=== PATIENT | male | born 1945 | race Caucasian/White ===

== ENCOUNTER → 2016-05-01 | Outpatient (CLI) | payer OTHER ==
[~2016-05-01] MED LIST: AMT/50 PO; CIPR-255 PO; DIPH-437 PO; GLUCTAB18 PO; IBUP-1427 PO; MELATAB2 PO; PRED1SUS OPL; SENNTAB23 PO; ZCR40 PO
--- NOTE | 2016-05-01 11:32 | DIAGNOSTIC IMAGING REPORT ---
KUB HISTORY: Right-sided stones. Follow-up. COMPARISON: KUB 05/27/2015. FINDINGS: The bowel gas pattern is unremarkable. There are no dilated loops of small bowel to suggest an obstruction. A stable 3 mm stone within the left kidney. Suggestion of faint punctate right renal calculus. These are not significantly changed. No ureteral calculi identified. No pneumoperitoneum or pneumatosis. IMPRESSION: Stable bilateral nephrolithiasis. No ureteral calculi. Electronically signed by: Irwin Davidson M.D. 05/01/2016 11:30 AM Dictated Date/Time: 05/01/2016 11:28 AM
== END | disposition home or self-care (01) ==
LOC: C.RAD 10:46
PROVIDERS: ATTEND Urology
DX: N20.0 Calculus of kidney (principal)

== ENCOUNTER → 2016-05-30 | Day surgery (SDC) | payer OTHER ==
[2016-05-16 11:23] VITALS: Ht 180.3 cm; Wt 113.2 kg
[~2016-05-30] VITALS: Ht 180.3 cm; Wt 113.2 kg
[~2016-05-30] MED LIST changes: +500ML BSS 0.3ML EPI 1:1000PF IRRIG ONE; +ACETAMINOPHEN 325 MG TAB PO PRN; +AMVISC PLUS 0.8ML SYRINGE INT OCU ONE; +ATROPINE SULFATE 0.1 MG/ML 5ML SYR IV PRN; +BETAXOLOL HCL 0.25% OP SUSP PER DROP CHARGE OPL SCH; +BRIMONIDINE TART 0.2% OP SOLN PER DROP CHARGE ONE; +BSS FLUSH ONE; -CIPR-255 PO; +ENDOCOAT 0.85ML SYRINGE INT OCU ONE; +EpINEphrine INJ 1MG/ML AMP 1 MG/ML AMP ONE; -IBUP-1427 PO; +LACTATED RINGER'S 1000ML 500 ML IV SCH; +LIDOCAINE 4% OP SOLN DROP CHARGE ONE; +LIDOCAINE 4% OP SOLN DROP CHARGE OPL SCH; +LIDOCAINE HCL 1% MPF 2 ML VIAL ONE; +MIDAZOLAM HCL 1 MG/ML 2ML VIAL ONE; +MIX: 4ML BSS 1ML EPI 1:1000 PF INSTIL ONE; +MOXIFLOXACIN OPH SOLN PER DROP CHARGE ONE; +NURSING VERBAL MED ORDER ONE; +OCUCOAT 1 ML SOLN IO ONE; +POVIDONE-IODINE OP SOLN 30 ML BTL ONE; +PROPARACAINE 0.5% OP SOLN PER DROP CHARGE OPL SCH; +TOBRAMYCIN/DEXAMETHASONE OPH OINT PER APPLN CHARGE ONE
--- NOTE | 2016-05-30 07:25 | History & Physical Bridge - SC ---
H&P Re-Evaluation Bridge Note: I have examined the patient, reviewed the History & Physical and in the interval since the performance of the History & Physical I have noted the following changes of clinical significance: No changes noted
[2016-05-30] MEDS: PHENYLEPHRINE HCL 2.5% OP SOLN PER DROP CHARGE OPL SCH ×2 (09:01→09:06)
[2016-05-30] MEDS: TROPICAMIDE 1% OP SOLN PER DROP CHARGE OPL SCH ×2 (09:02→09:07)
[2016-05-30] MEDS: CYCLOPENTOLATE HCL 1% OP SOLN PER DROP CHARGE OPL SCH ×2 (09:03→09:08)
[2016-05-30] MEDS: MOXIFLOXACIN OPH SOLN PER DROP CHARGE OPL SCH ×2 (09:04→09:14)
--- NOTE | 2016-05-30 10:03 | Discharge Instructions-SurgCtr ---
Discharge Instructions Visit Reason for Visit: Cataract Left Eye Discharge Discharge Diagnosis / Problem: lens implant left eye Discharge Goals Goal(s): Improve function Activity Recommendations Activity Limitations: resume your previous activity Lifting Limitations: no more than 10 pounds Exercise/Sports Limitations: gradually increase as tolerated May Resume Sexual Activity: when tolerated Shower/Bathe: tomorrow Driving or Machine Use: resume 1 day after discharge Anesthesia . Post Anesthesia Instructions: If you have had General Anesthesia or IV Sedation: * Do not drive today. * Resume driving when surgeon permits. * Do not make important decisions or sign legal documents today. * Call surgeon for: 1. Temperature elevations greater than 101 degrees F. 2. Uncontrollable pain. 3. Excessive bleeding. 4. Persistent nausea and vomiting. 5. Medication intolerance (nausea, vomiting or rash). * For nausea and vomiting use only clear liquids such as: tea, soda, bouillon until nausea subsides, then gradually increase diet as tolerated. * If you have any concerns or questions, call your surgeon's office. If physician is unavailable and it is an emergency, call 911 or go to the nearest emergency room. . Instructions / Follow-Up Instructions / Follow-Up ACTIVITY RECOMMENDATIONS: * Light activities. * Mild irritation and blurred vision are common for the first few days. * You may walk outside, read, watch television. * Redness around the white part of the eye is common. MEDICATIONS: Resume previous medications unless instructed otherwise by your surgeon. Start all eye drops at 1 pm today: * Eye drops (today and tomorrow): Prednisone - one drop in operative eye every 3 hours while awake Ofloxacin - one drop in operative eye every 3 hours while awake SPECIAL CARE INSTRUCTIONS: * Tape plastic shield over eye to sleep at night. Call your doctor at with any concerns or problems. FOLLOW UP VISIT: Follow-up with Dr Verde at [place] office as scheduled. Diet Recommendations Home Diet: no limitations Procedures Procedures Performed: cataract extraction with lens implant Pending Studies Studies pending at discharge: no Medical Emergencies . Who to Call and When: Medical Emergencies: If at any time you feel your situation is an emergency, please call 911 immediately. . Non-Emergent Contact Non-Emergency issues call your: Bill Poster Installer Call Non-Emergent contact if: your pain is not controlled [phone] . . "Provider Documentation" section prepared by Derrek Verde.
--- NOTE | 2016-05-30 10:06 | [facility] Operative Report ---
Operative Report Date of Service May 30, 2016. Operative Report 1. PREOPERATIVE DIAGNOSIS: Senile nuclear cataract, left eye. 2. POSTOPERATIVE DIAGNOSIS: Senile nuclear cataract, left eye. 3. PROCEDURE: Phacoemulsification of left cataract with posterior chamber lens implant, type Bausch [employer] Lomb, model MX60, power +17.5 diopters. ANESTHESIA: Local standby. SURGEON: Dr. Verde. COMPLICATIONS: None. OPERATING TIME: 10 minutes. 4. OPERATION AND FINDINGS: DESCRIPTION OF PROCEDURE: The left pupil was dilated. The anesthetic was administered using a topical technique. The left eye was prepped and draped. A speculum was placed. A clear corneal incision was formed. The chamber was filled with Amvisc Plus and Endocoat. Epinephrine solution was used. A paracentesis was placed. A capsulorrhexis was performed. The nucleus was hydrodissected. The lens was removed with phacoemulsification. Time was 3.13 seconds. The aspiration unit was used to remove the cortex. The capsule was filled with Amvisc Plus. The lens implant was folded and placed into the capsule. A second limbal astigmatic incision was made 180 degrees from the original incision. The incisions were hydrated. The Amvisc was aspirated. The wounds were secure. The chamber was deep. The pupil was round. TobraDex ointment and Vigamox solution were placed. The speculum was removed. The patient was returned to the Recovery Room in stable condition. I attest to the content of the Intraoperative Record and any orders documented therein. Any exceptions are noted below. The scribe's documentation has been prepared in my presence, under my direction and personally reviewed by me in its entirety. I confirm that the note above accurately reflects all work, treatment, procedures, and medical decision making performed by me. I personally scribed for Derrek Verde M.D. ([facility]) on 05/30/16 at 10:06. Electronically submitted by Kim GUAMAN).
[2016-05-30 10:08] VITALS: TEMP 36.6
[2016-05-30 10:30] VITALS: BP 141/87; PULSE 67; O2SAT 98
[2016-05-30] MEDS: PROPARACAINE 0.5% OP SOLN PER DROP CHARGE OPL SCH ×2 (10:33→10:34)
--- NOTE | 2016-05-30 10:35 | Anesthesia Progress Nt - [facility] ---
Anesthesia Post Op Note Date & Time May 30, 2016 at 10:35 Vital Signs Pain Intensity: 0 Vital Signs Past 12 Hours Date Time Temp Pulse Resp B/P Pulse Ox O2 Delivery O2 Flow Rate FiO2 05/30/16 10:08 36.6 70 16 123/77 96 Room Air 05/30/16 08:51 36.4 79 18 131/80 97 Room Air Notes Mental Status: alert / awake / arousable, participated in evaluation Pt Amnestic to Procedure: Yes Nausea / Vomiting: adequately controlled Pain: adequately controlled Airway Patency, RR, SpO2: stable & adequate BP & HR: stable & adequate Hydration State: stable & adequate Anesthetic Complications: no major complications apparent
== END | disposition home or self-care (01) ==
LOC: X.SURG 08:34
PROVIDERS: ATTEND Specialist
DX: H25.12 Age-related nuclear cataract, left eye (principal); I10 Essential (primary) hypertension; M06.9 Rheumatoid arthritis, unspecified; Z98.1 Arthrodesis status; Z87.442 Personal history of urinary calculi; Z88.2 Allergy status to sulfonamides; Z88.8 Allergy status to other drugs, medicaments and biological substances; Z86.711 Personal history of pulmonary embolism

== ENCOUNTER → 2016-06-20 | Day surgery (SDC) | payer OTHER ==
[2016-06-18 08:58] VITALS: Ht 179.1 cm; Wt 112.3 kg
[~2016-06-20] VITALS: Ht 179.1 cm; Wt 112.3 kg
[~2016-06-20] MED LIST changes: -BETAXOLOL HCL 0.25% OP SUSP PER DROP CHARGE OPL SCH; +BETAXOLOL HCL 0.25% OP SUSP PER DROP CHARGE OPR SCH; -ENDOCOAT 0.85ML SYRINGE INT OCU ONE; +EpHEDrine SULFATE INJ 50 MG/ML AMP IV PRN; -LIDOCAINE 4% OP SOLN DROP CHARGE OPL SCH; +LIDOCAINE 4% OP SOLN DROP CHARGE OPR ONE; +LIDOCAINE 4% OP SOLN DROP CHARGE OPR SCH; -PROPARACAINE 0.5% OP SOLN PER DROP CHARGE OPL SCH; +PROPARACAINE 0.5% OP SOLN PER DROP CHARGE OPR SCH
[2016-06-20] MEDS: PHENYLEPHRINE HCL 2.5% OP SOLN PER DROP CHARGE OPR SCH ×2 (07:26→07:31)
[2016-06-20] MEDS: TROPICAMIDE 1% OP SOLN PER DROP CHARGE OPR SCH ×2 (07:27→07:32)
[2016-06-20] MEDS: CYCLOPENTOLATE HCL 1% OP SOLN PER DROP CHARGE OPR SCH ×2 (07:28→07:33)
[2016-06-20] MEDS: MOXIFLOXACIN OPH SOLN PER DROP CHARGE OPR SCH ×2 (07:29→07:39)
--- NOTE | 2016-06-20 08:32 | Discharge Instructions-SurgCtr ---
Discharge Instructions Date of Service Jun 20, 2016. Visit Reason for Visit: Cataract Right Eye Discharge Discharge Diagnosis / Problem: lens implant right eye Discharge Goals Goal(s): Improve function Activity Recommendations Activity Limitations: resume your previous activity Lifting Limitations: no more than 10 pounds Exercise/Sports Limitations: gradually increase as tolerated May Resume Sexual Activity: when tolerated Shower/Bathe: tomorrow Driving or Machine Use: resume 1 day after discharge Anesthesia . Post Anesthesia Instructions: If you have had General Anesthesia or IV Sedation: * Do not drive today. * Resume driving when surgeon permits. * Do not make important decisions or sign legal documents today. * Call surgeon for: 1. Temperature elevations greater than 101 degrees F. 2. Uncontrollable pain. 3. Excessive bleeding. 4. Persistent nausea and vomiting. 5. Medication intolerance (nausea, vomiting or rash). * For nausea and vomiting use only clear liquids such as: tea, soda, bouillon until nausea subsides, then gradually increase diet as tolerated. * If you have any concerns or questions, call your surgeon's office. If physician is unavailable and it is an emergency, call 911 or go to the nearest emergency room. . Instructions / Follow-Up Instructions / Follow-Up ACTIVITY RECOMMENDATIONS: * Light activities. * Mild irritation and blurred vision are common for the first few days. * You may walk outside, read, watch television. * Redness around the white part of the eye is common. MEDICATIONS: Resume previous medications unless instructed otherwise by your surgeon. Start all eye drops at 1 pm today: * Eye drops (today and tomorrow): Prednisone - one drop in operative eye every 3 hours while awake Ofloxacin - one drop in operative eye every 3 hours while awake SPECIAL CARE INSTRUCTIONS: * Tape plastic shield over eye to sleep at night. Call your doctor at with any concerns or problems. FOLLOW UP VISIT: Follow-up with Dr Verde at [place] office as scheduled. Diet Recommendations Home Diet: no limitations Procedures Procedures Performed: cataract extraction with lens implant Pending Studies Studies pending at discharge: no Medical Emergencies . Who to Call and When: Medical Emergencies: If at any time you feel your situation is an emergency, please call 911 immediately. . Non-Emergent Contact Non-Emergency issues call your: Reading Teacher Call Non-Emergent contact if: your pain is not controlled [phone] . . "Provider Documentation" section prepared by Derrek Verde.
--- NOTE | 2016-06-20 08:34 | [facility] Operative Report ---
Operative Report Date of Service Jun 20, 2016. Operative Report 1. PREOPERATIVE DIAGNOSIS: Senile nuclear cataract, right eye. 2. POSTOPERATIVE DIAGNOSIS: Senile nuclear cataract, right eye. 3. PROCEDURE: Phacoemulsification of right cataract with posterior chamber lens implant, type Bausch [employer] Lomb, model MX60, power +16.0 diopters. ANESTHESIA: Local standby. SURGEON: Dr. Verde. COMPLICATIONS: None. OPERATING TIME: 10 minutes. 4. OPERATION AND FINDINGS: DESCRIPTION OF PROCEDURE: The right pupil was dilated. The anesthetic was administered using a topical technique. The right eye was prepped and draped. A speculum was placed. A clear corneal incision was formed. The chamber was filled with Amvisc Plus and Endocoat. Epinephrine solution was used. A paracentesis was placed. A capsulorrhexis was performed. The nucleus was hydrodissected. The lens was removed with phacoemulsification. Time was 3.40 seconds. The aspiration unit was used to remove the cortex. The capsule was filled with Amvisc Plus. The lens implant was folded and placed into the capsule. The incision was hydrated. The Amvisc was aspirated. The wound was secure. The chamber was deep. The pupil was round. Brimonidine, TobraDex ointment and Vigamox solution were placed. The speculum was removed. The patient was returned to the Recovery Room in stable condition. I attest to the content of the Intraoperative Record and any orders documented therein. Any exceptions are noted below. The scribe's documentation has been prepared in my presence, under my direction and personally reviewed by me in its entirety. I confirm that the note above accurately reflects all work, treatment, procedures, and medical decision making performed by me. I personally scribed for Derrek Verde M.D. ([facility]) on 06/20/16 at 08:34. Electronically submitted by Kim Griffith ([facility]).
[2016-06-20 08:38] VITALS: TEMP 36.6
[2016-06-20 09:02] VITALS: BP 125/81; PULSE 64; O2SAT 100
--- NOTE | 2016-06-20 09:02 | Anesthesia Progress Nt - [facility] ---
Anesthesia Post Op Note Date & Time Jun 20, 2016 at 09:02 Vital Signs Pain Intensity: 0 Vital Signs Past 12 Hours Date Time Temp Pulse Resp B/P Pulse Ox O2 Delivery O2 Flow Rate FiO2 06/20/16 08:38 36.6 72 18 117/72 97 Room Air 06/20/16 07:22 36.8 90 16 110/74 97 Room Air Notes Mental Status: alert / awake / arousable, participated in evaluation Pt Amnestic to Procedure: Yes Nausea / Vomiting: adequately controlled Pain: adequately controlled Airway Patency, RR, SpO2: stable & adequate BP & HR: stable & adequate Hydration State: stable & adequate Anesthetic Complications: no major complications apparent
== END | disposition home or self-care (01) ==
LOC: X.SURG 06:55
PROVIDERS: ATTEND Specialist
DX: H25.11 Age-related nuclear cataract, right eye (principal); I10 Essential (primary) hypertension; Z88.2 Allergy status to sulfonamides; Z88.8 Allergy status to other drugs, medicaments and biological substances

== ENCOUNTER → 2016-11-09 | Outpatient (CLI) | payer OTHER ==
[~2016-11-09] MED LIST changes: -500ML BSS 0.3ML EPI 1:1000PF IRRIG ONE; -ACETAMINOPHEN 325 MG TAB PO PRN; -AMVISC PLUS 0.8ML SYRINGE INT OCU ONE; -ATROPINE SULFATE 0.1 MG/ML 5ML SYR IV PRN; -BETAXOLOL HCL 0.25% OP SUSP PER DROP CHARGE OPR SCH; -BRIMONIDINE TART 0.2% OP SOLN PER DROP CHARGE ONE; -BSS FLUSH ONE; -EpHEDrine SULFATE INJ 50 MG/ML AMP IV PRN; -EpINEphrine INJ 1MG/ML AMP 1 MG/ML AMP ONE; -LACTATED RINGER'S 1000ML 500 ML IV SCH; -LIDOCAINE 4% OP SOLN DROP CHARGE ONE; -LIDOCAINE 4% OP SOLN DROP CHARGE OPR ONE; -LIDOCAINE 4% OP SOLN DROP CHARGE OPR SCH; -LIDOCAINE HCL 1% MPF 2 ML VIAL ONE; -MIDAZOLAM HCL 1 MG/ML 2ML VIAL ONE; -MIX: 4ML BSS 1ML EPI 1:1000 PF INSTIL ONE; -MOXIFLOXACIN OPH SOLN PER DROP CHARGE ONE; -NURSING VERBAL MED ORDER ONE; -OCUCOAT 1 ML SOLN IO ONE; -POVIDONE-IODINE OP SOLN 30 ML BTL ONE; -PROPARACAINE 0.5% OP SOLN PER DROP CHARGE OPR SCH; -TOBRAMYCIN/DEXAMETHASONE OPH OINT PER APPLN CHARGE ONE
--- NOTE | 2016-11-09 08:42 | DIAGNOSTIC IMAGING REPORT ---
KUB CLINICAL HISTORY: N20.0 Nephrolithiasis COMPARISON STUDY: 05/01/2016 FINDINGS: Degenerative changes are present within the spine. There is no pathologic bowel dilatation. There is a stable 3 mm left renal calculus. There is equivocal punctate left renal calculus. Pelvic basin calcifications are felt to be vascular. IMPRESSION: 1. No evidence of pathologic bowel dilatation 2. Stable 3 mm left renal calculus 3. Equivocal punctate right renal calculus Electronically signed by: Jaydon Sparks M.D. 11/09/2016 8:41 AM Dictated Date/Time: 11/09/2016 8:40 AM
[2016-11-09 09:43] LABS: BLOOD UREA NITROGEN 19 mg/dl (7-18); BUN/CREATININE RATIO 17.2 (10-20)
--- NOTE | 2016-11-15 13:12 | CODING QUERY MEDICAL NECESSITY ---
CQSUPPORTING DIAGNOSIS NEEDED A supporting diagnosis is required for the test/procedure performed on this patient in order for us to be reimbursed by the patient's insurance. Please provide a supporting diagnosis for the following test/procedure listed below next to the test name along with your signature. *If there is no additional diagnosis for this patient that would support the following test/procedure please document that below next to the test/procedure. Test(s)/Procedure(s) that require a supporting diagnosis: DOS 11/09/16 PROSTATE SPECIFIC ANTIGEN (PSA) Provider Signature: Date: Thank you Maribel Lundberg Health Information Management Once completed, please kindly fax back to [phone] For questions please call [phone]
== END | disposition home or self-care (01) ==
LOC: C.LAB 08:02
PROVIDERS: ATTEND Urology
DX: N20.0 Calculus of kidney (principal); N40.1 Benign prostatic hyperplasia with lower urinary tract symptoms; R97.20 Elevated prostate specific antigen [PSA]

== ENCOUNTER → 2017-07-22 | Outpatient (CLI) | payer OTHER ==
--- NOTE | 2017-07-22 12:20 | DIAGNOSTIC IMAGING REPORT ---
KUB CLINICAL HISTORY: N20.0 [id number] Benign prostatic hyperplasia with urinary retention COMPARISON STUDY: November 09, 2016 FINDINGS: There is a 2 mm calcification projected over the midpole the left kidney suspicious for a calculus. There is a punctate calcification projected over the lower pole the left kidney suspicious for a calculus. There are no calcifications suspicious for ureteral calculi. Degenerative changes are present within the spine. There is no pathologic bowel dilatation. IMPRESSION: 1. Left-sided nephrolithiasis. Electronically signed by: Jaydon Sparks M.D. 07/22/2017 12:19 PM Dictated Date/Time: 07/22/2017 12:17 PM
== END | disposition home or self-care (01) ==
LOC: C.RAD 11:40
PROVIDERS: ATTEND Urology
DX: N20.0 Calculus of kidney (principal); N40.1 Benign prostatic hyperplasia with lower urinary tract symptoms

== ENCOUNTER → 2017-11-20 | Outpatient (CLI) | payer OTHER ==
[2017-11-20 10:39] LABS: BLOOD UREA NITROGEN 20 mg/dl (7-18); CREATININE 1.04 mg/dl (0.60-1.40)
== END | disposition home or self-care (01) ==
LOC: C.LAB 09:34
PROVIDERS: ATTEND Urology
DX: N20.1 Calculus of ureter (principal)

== ENCOUNTER 2022-01-25 05:48 | Observation (INO) ==
--- NOTE | 2021-12-14 13:49 | PAT Medication Instructions ---
Medication Instructions Date of Service December 14, 2021 Home Medications acetaminophen 500 mg tablet (Tylenol Extra Strength) 1,000 mg PO ONCE PRN Pain diphenhydramine 25 mg-acetaminophen 500 mg tablet (Tylenol PM Extra Strength) 1 tab PO HS doxepin 25 mg capsule 25 - 50 mg PO HS PRN Sleep dvtoopsekyv-[id number] C-Mn 500 mg-400 mg capsule (Glucosamine Chondroitin Maximum Strength) 1 cap PO BID melatonin 5 mg capsule 5 mg PO HS simvastatin 40 mg tablet (Zocor) 40 mg PO QPM pregabalin 75 mg capsule 75 mg PO BID PRN Pain ASK your prescriber and surgeon doxepin 25 mg capsule 25 - 50 mg PO HS PRN Sleep STOP taking 2 weeks before surgery (or as soon as possible if surgery is within 2 weeks) [id number]-[id number] C-Mn 500 mg-400 mg capsule (Glucosamine Chondroitin Maximum Strength) 1 cap PO BID Take morning of surgery With a small sip of water, OTHERWISE NOTHING TO EAT OR DRINK AFTER MIDNIGHT: acetaminophen 500 mg tablet (Tylenol Extra Strength) 1,000 mg PO ONCE PRN Pain (if needed) pregabalin 75 mg capsule 75 mg PO BID PRN Pain (if needed) Take evening before surgery acetaminophen 500 mg tablet (Tylenol Extra Strength) 1,000 mg PO ONCE PRN Pain (if needed) diphenhydramine 25 mg-acetaminophen 500 mg tablet (Tylenol PM Extra Strength) 1 tab PO HS melatonin 5 mg capsule 5 mg PO HS simvastatin 40 mg tablet (Zocor) 40 mg PO QPM pregabalin 75 mg capsule 75 mg PO BID PRN Pain (if needed) Other Notes If you have any questions please call us at [phone] or [phone] or [phone] or [phone]
--- NOTE | 2021-12-22 12:41 | Anesthesiology Consultation ---
Date of Service December 22, 2021 Assessment & Plan (1) Encounter for pre-operative examination: - COVID screening: Per assessment on 12/22: No known COVID-19 positive contacts or current COVID-19 related symptoms. Travel screen negative. Patient vaccinated. At surgeon discretion if preop Covid testing being done. - Outpatient joint assessment: Pt currently scheduled for inpatient pathway. If surgeon requests review for outpatient joint pathway, patient is not recommended candidate for outpatient joint program from anesthesia standpoint. Can be further reviewed by anesthesiologist if necessary. Chart Review Chart Review: Acceptable Risk for Surgery and Patient seen in Pre Admission Testing Teaching & Discussion Pre-Anesthesia Teaching/Discussion Notes: Instructed NPO after midnight before surgery,except medications with 15 cc of water. Medication instructions provided according to the PAT guidelines. History Surgery Operation Date: 01/25/22 07:00 Proposed Procedures p Right Total Knee Arthroplasty - Tico Robertson MD Height/Weight Height: 5 ft 10.5 in Weight: 96.3 kg Allergies Allergy/AdvReac Type Severity Reaction Status Date / Time Sulfa (Sulfonamide Allergy Intermediate Unknown Verified 12/19/21 11:37 Antibiotics) zolpidem Allergy Unknown Head Verified 12/19/21 11:37 pressure Medications Home Medications Medication Instructions Recorded Confirmed Last Taken acetaminophen 500 mg tablet 1,000 mg PO ONCE PRN Pain 02/25/18 12/13/21 Unknown (Tylenol Extra Strength) diphenhydramine 25 1 tab PO HS 02/25/18 12/13/21 Unknown mg-acetaminophen 500 mg tablet (Tylenol PM Extra Strength) doxepin 25 mg capsule 25 - 50 mg PO HS PRN Sleep 02/25/18 12/13/21 Unknown iuajbuwegbo-mvthgxhiy-aik C-Mn 500 1 cap PO BID 02/25/18 12/13/21 Unknown mg-400 mg capsule (Glucosamine Chondroitin Maximum Strength) melatonin 5 mg capsule 5 mg PO HS 02/25/18 12/13/21 Unknown simvastatin 40 mg tablet (Zocor) 40 mg PO QPM 02/25/18 12/13/21 Unknown pregabalin 75 mg capsule 75 mg PO BID PRN Pain 01/22/20 12/13/21 Unknown Wheeled Walker #1 ea 12/22/21 12/22/21 Unknown Past Medical History Medical History Bilateral carpal tunnel syndrome Present Borderline diabetic Diet controlled Chronic low back pain H/O renal calculi High cholesterol 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) r/t trauma/injury, was on coumadin x 6 months History of pulmonary embolism LLE DVT > PE (2012) r/t trauma/injury, was on coumadin x 6 months Insomnia Migraines Obesity Osteoarthritis Right knee DJD Exercise / Class Metabolic Activity II 4-5 Yardwork/Stairs/Walk up hill (one FS (No CP, no SOB)) Past Family History Family History Mother Cancer Father Diabetes 1.5, managed as type 1 Stroke Past Surgical History Surgical History H/O colonoscopy H/O lithotripsy H/O nephrolithotomy with removal of calculi History of arthroscopy Right knee History of cataract surgery R/L History of cystoscopy History of tooth extraction Hx of surgical procedure Ganglion Impar Radiofrequency Ablation Past Anesthesia History No Hx of Anesthesia Complications and No Family Hx of Anesthesia Complications History of PONV No Hx of PONV and Hx of Motion Sickness (Remote) Social History Smoking Status: Never smoker Do You Dip or Chew Tobacco: No Hx Alcohol Use: No Hx Substance Use: No substance use type: does not use Review of Systems Patient denies chest pain, shortness of breath, dyspnea on exertion, fever, chills, cough, wheezing, palpitations. Physical Exam Vital Signs VITALS BP 118/71 P 80 TEMP 98.0 SP02 98%RA RESP 18 PHYSICAL Full cervical extension range of motion. Full TMJ range of motion. TMD 4 finger breaths Mallampati Score 2 Dentition: several missing, lower front bridge Lungs: clear throughout to auscultation Cardiac: regular rate and rhythm, no murmurs noted Spine: normal Carotid arteries: negative bruit Extremities: no edema Lab Results Anesthesia Preop Results Results Anesthesia Widget: WBC 4.80 K/ul (4.8-10.8) 12/22/21 Hgb 15.6 g/dl (14.0-18.0) 12/22/21 Hct 46.6 % (40.1-51.0) 12/22/21 Plt 158 K/uL (130-400) 12/22/21 Na 144 mmol/L (136-145) 12/22/21 K 4.7 mmol/L (3.5-5.1) 12/22/21 Cl 108 mmol/L (98-107) H 12/22/21 CO2 27 mmol/L (21-32) 12/22/21 BUN 23 mg/dl (6-23) 12/22/21 Creat 1.07 mg/dl (0.6-1.4) 12/22/21 Glucose Level 161 mg/dl (70-99(Fasting)) H 12/22/21 PT 10.5 Seconds (9.0-12.0) 12/22/21 PTT 26.3 Seconds (21.0-31.0) 12/22/21 INR 1.0 (0.9-1.1) 12/22/21 Blood Type A Positive 12/22/21 Antibody Screen NEGATIVE 12/22/21 Testing Electrocardiogram Date: 12/22/21 NSR at 71bpm. Chest X-Ray Date: 12/22/21 FINDINGS: Lung volumes are normal. Lungs are clear. There is no pneumothorax or pleural effusion. Cardiac size is normal. Mediastinal contours are normal. There is no evidence for pulmonary edema. IMPRESSION: No acute cardiopulmonary findings. Echocardiogram Date: 03/12/17 LVEF 65%. No regional motion abnormality. No significant valvular disease. Grade 1 diastolic dysfunction. COVID-19 Risk Screen Screening Information COVID-19 Screen Date: 12/22/21 Exposure 21 Days Family/Household +COVID Last 21 Days: No Exposure 10 Days Any COVID Exposure Last 10 Days: No Symptoms Last 10 Days Experienced COVID Sx Last 10 Days: No + COVID 0-90 Days COVID + in Last 0-90 Days: No
[2022-01-25] MEDS ORDERED: ceFAZolin 2000MG 2,000 MG/15 ML SYR IV SCH (06:00)
[2022-01-25] MEDS ORDERED: BUPIVACAINE LIPOSOME/PF 266 MG, BUPIVACAINE/EPINEPHRINE 50 ML, SODIUM CHLORIDE 0.9% 30 ... INFIL SCH (06:00)
[2022-01-25] MEDS ORDERED: LR 500ML BOLUS, THEN 15ML/HR IV SCH (06:00)
[2022-01-25] MEDS ORDERED: FAMOTIDINE 20 MG TAB PO SCH (06:00)
[2022-01-25] MEDS ORDERED: LR 60ML/HR IV SCH (06:00)
[2022-01-25] MEDS ORDERED: ACETAMINOPHEN 500 MG TAB PO SCH (06:00)
[2022-01-25] MEDS ORDERED: CeleBREX 200 MG CAP PO SCH (06:00)
[2022-01-25] MEDS ORDERED: TRANEXAMIC ACID 1,000 MG **IV Intra-op IV SCH (06:00)
[2022-01-25] MEDS ORDERED: METOCLOPRAMIDE HCL 10 MG TABLET PO SCH (06:00)
[2022-01-25] MEDS ORDERED: BUPIVACAINE 0.5 % 5 MG/1 ML PF 10ML VIAL ONE (06:34)
[2022-01-25] MEDS ORDERED: EPINEPHrine INJ 1 MG/ML AMP ONE (06:34)
[2022-01-25] MEDS ORDERED: BUPIVACAINE 0.25% 30 ML VIAL ONE (06:35)
[2022-01-25] MEDS ORDERED: DEXAMETHASONE SOD INJ 4 MG/ML VIAL ONE (06:35)
--- NOTE | 2022-01-25 07:01 | History & Physical Report ---
Date of Service January 25, 2022 Assessment & Plan (1) Right knee DJD: Patient decided to proceed with right knee replacement. The risks and benefits of procedure explained the patient and his in depth. He elected to proceed. Informed consent was obtained. History of Present Illness Chief Complaint: . Right knee pain. Primary Care Provider: Noemi Reyes PA-C . 72-year-old gentleman who presents for surgical treatment of his right knee. Got a 5+ year history of increasing right knee pain discomfort describes gotten worse over time. Is been through extensive conservative modalities which have become less successful over time. This is been also done at [facility] by Dr. Pardo. He was initially planning on having surgery a couple months ago but then kind of decided against it now decided to proceed. Pain is mostly lateral. It gives out on him intermittently. Allergies Allergy/AdvReac Type Severity Reaction Status Date / Time Sulfa (Sulfonamide Allergy Intermediate Unknown Verified 01/25/22 06:10 Antibiotics) zolpidem Allergy Unknown Head Verified 01/25/22 06:10 pressure Home Medications Medication Instructions Recorded Confirmed Type acetaminophen 500 mg tablet 1,000 mg PO ONCE PRN Pain 02/25/18 01/25/22 History (Tylenol Extra Strength) diphenhydramine 25 1 tab PO HS 02/25/18 01/25/22 History mg-acetaminophen 500 mg tablet (Tylenol PM Extra Strength) doxepin 25 mg capsule 25 - 50 mg PO HS PRN Sleep 02/25/18 01/25/22 History spzvhixtzok-ixmjldwng-arl C-Mn 500 1 cap PO BID 02/25/18 01/25/22 History mg-400 mg capsule (Glucosamine Chondroitin Maximum Strength) melatonin 5 mg capsule 5 mg PO HS 02/25/18 01/25/22 History simvastatin 40 mg tablet (Zocor) 40 mg PO QPM 02/25/18 01/25/22 History pregabalin 75 mg capsule 75 mg PO BID PRN Pain 01/22/20 01/25/22 History Wheeled Walker #1 ea 12/22/21 01/09/22 Rx acetaminophen 500 mg capsule 1,000 mg PO TID Pain 30 days #180 01/23/22 01/25/22 Rx caps ondansetron HCl 4 mg tablet 4 mg PO Q6 PRN nausea #20 tabs 01/23/22 01/25/22 Rx oxycodone 5 mg tablet 5 mg PO Q4H PRN pain #30 tabs 01/23/22 01/25/22 Rx rivaroxaban 2.5 mg tablet (Xarelto) 2.5 mg PO BID 30 days #60 tabs 01/23/22 01/25/22 Rx sennosides 8.6 mg-docusate sodium 1 tab-cap PO BID 15 days #30 tabs 01/23/22 01/25/22 Rx 50 mg tablet (Senokot-S) tamsulosin 0.4 mg capsule (Flomax) 0.4 mg PO DAILY #7 caps 01/23/22 01/25/22 Rx Past Med/Surg History Medical History Bilateral carpal tunnel syndrome Present Borderline diabetic Diet controlled Chronic low back pain H/O renal calculi High cholesterol 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) r/t trauma/injury, was on coumadin x 6 months History of pulmonary embolism LLE DVT > PE (2012) r/t trauma/injury, was on coumadin x 6 months Insomnia Migraines Obesity Osteoarthritis Right knee DJD Surgical History H/O colonoscopy H/O lithotripsy H/O nephrolithotomy with removal of calculi History of arthroscopy Right knee History of cataract surgery R/L History of cystoscopy History of tooth extraction Hx of surgical procedure Ganglion Impar Radiofrequency Ablation Family History Mother Cancer Father Diabetes 1.5, managed as type 1 Stroke Social History Smoking Status: Never smoker Second Hand Exposure: No; Do You Dip or Chew Tobacco: No; Tobacco Cessation Education Requested by Patient: No Hx Alcohol Use: No Hx Substance Use: No Preferred Language: Indonesian Communication Ability: Effective Visual Impairment: No Limitations Hearing Ability: Normal 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 Physical Exam . Physical examination of the right knee reveals patient ambulates independently. Valgus alignment to his knee with increased weightbearing. Range of motion is full extension to 120 degrees of flexion. Small knee effusion. No instability. No pain with hip motion. Constitutional WD/WN, vitals as above Eyes PERRL, conjunctivae normal, anicteric sclerae ENMT external ear and nose normal, oropharynx normal Neck trachea midline, no thyromegaly Respiratory normal respiratory effort, lungs clear to auscultation Cardiovascular RRR, no murmur, no edema Gastrointestinal (Abdomen) normal bowel sounds, soft, nontender, no hepatosplenomegaly Neurologic patellar DTR's 2+ bilat, sensation intact and PERRL, EOMI, accommodation nl, no face palsy, no dysarthria Results & Data Results & Data Laboratory Results . Diagnostic Findings . X-rays of the right knee reveal advanced lateral compartment arthritis. Complete loss of his joint space on the 40 degree flexion films. He is got valgus alignment to his knee. PG Care Time/CCT Total # of Minutes Spent Total Time Spent with Patient: Total time spent is greater than 50% in coordination of care (as documented) at patient's floor/unit and/or counseling patient: Coding Level of Care Code 44926 Initial Inpt Care Lvl 3 Diagnoses Right knee DJD M17.11
[2022-01-25] MEDS ORDERED: MIDAZOLAM HCL 1 MG/ML 2ML VIAL ONE ×2 (07:22→09:12)
[2022-01-25] MEDS ORDERED: fentaNYL citrate 100 MCG/2 ML VIAL ONE (07:22)
[2022-01-25] MEDS ORDERED: ONDANSETRON INJ 2 MG/ML 2 ML VIAL IV PRN ×3 (07:31→12:04)
[2022-01-25] MEDS ORDERED: ATROPINE SULFATE 0.1 MG/ML 10ML SYR IV PRN ×2 (07:31→07:50)
[2022-01-25] MEDS ORDERED: ePHEDrine sulfate 50 MG/ML AMP IV PRN ×2 (07:31→07:50)
[2022-01-25] MEDS ORDERED: fentaNYL citrate 100 MCG/2 ML VIAL IV PRN ×2 (07:31→07:50)
[2022-01-25] MEDS ORDERED: PROMETHAZINE HCL 6.25 MG in SODIUM CHLORIDE 0.9% 50 ML IV PRN ×2 (07:31→07:50)
[2022-01-25] MEDS ORDERED: PROPOFOL IV EMULSION 10 MG/ML 20 ML VIAL IV ONE (08:17)
[2022-01-25] MEDS ORDERED: BUPIVACAINE/EPINEPHRINE 0.25% 1:200,000 30 ML VIAL ONE (08:45)
[2022-01-25] MEDS ORDERED: SODIUM CHLORIDE 0.9% PF 50 ML VIAL ONE (08:46)
[2022-01-25] MEDS ORDERED: BUPIVACAINE LIPOSOME 1.3% 266 MG/20 ML VIAL ONE (08:46)
[2022-01-25] MEDS ORDERED: ePHEDrine sulfate 50 MG/ML AMP ONE (09:58)
--- NOTE | 2022-01-25 11:02 | Operative Report ---
PG Post Operative Report Pre & Post Diagnosis Operation Date: 01/25/22 08:50 Pre-Op Diagnosis: Right Knee Advanced Degenerative Joint Disease Post-Op Diagnosis: Right Knee Advanced Degenerative Joint Disease I identified the patient and participated in the time-out.: Yes Procedure Operation Date: 01/25/22 08:50 Actual Procedures p Right Total Knee Arthroplasty(Right) - Tico Robertson MD Surgeon Tico Robertson MD Pear Picker Jayson Kinney PA-C Estimated Blood Loss 50 Findings Consistent with Post-Op Diagnosis Operative findings were advanced right knee lateral compartment DJD. He had grade 4 eojc-jw-[id number] disease of the lateral femoral condyle lateral tibial plateau. He had some spotty grade 4 changes medially as well as in the patellofemoral joint. Moderate-sized joint effusion. Fluids 1400 cc Specimens Right knee sent for pathology. Drains None Anesthesia Type Spinal MAC Complications none Disposition Accompanied Patient To Recovery: No Indications Patient is 76-year-old gentleman has had a several year history of increasing right knee pain discomfort. Has been to extensive conservative treatment which became less successful over time. X-rays show advanced lateral compartment arthritis. He elected proceed with total knee arthroplasty. Description of Procedure Operative implants consist of: 1 Biomet Vanguard size 70 right posterior stabilized femoral component. 2. Biomet size 75 tibial tray. 3. 10 mm posterior stabilized polyethylene insert. 4. 31 x 8 all Paller patella. The patient was taken the operating, identified, placed on the operating table supine position protectors were properly padded. IV antibiotics tried by [facility] team. A spinal anesthetic and abductor canal block had provided in the holding area. Rodriguez catheter was placed in a sterile fashion. A right factor was then placed. The right lower extremities and prepped and draped in usual sterile fashion. The right leg was elevated exsanguinated with use of an Esmarch in terms playset 3 mmHg. An anterior approach of the right knee was then performed through a longitudinal incision centered over the patella. Sharp dissection was carried through subcutaneous tissue down the extensor mechanism. A medial parapatellar arthrotomy incision was made. Some subperiosteal dissection was carried out medially. The fat pad was dissected from Neath patella tendon. Lateral patellofemoral ligament was released. Patella subluxated laterally and the knee was flexed. The osteophytes were taken off distal femur. The ACL and PCL were then released from distal femur and the tibia subluxated anteriorly. The external tibial alignment jig was then placed in the anterior face of the tibia and adjusted 12 mm medially. Proximal tibial cut was made remove about 3 to 4 mm of bone from the most deficient medial side. The tibia was then sized to a size 75. Attention drawn the femur. The distal femur was entered with a sharp drill. Intramedullary canal was suction. A right 5 degree valgus cutting guide was placed. Distal femoral cutting block was pinned in place. Distal femoral cut was made to take an additional 5 mm of bone off distal femur. The knee was brought out into full extension. I did use just a little bit of piecrust in the IT band in order to equalize extension gap. The knee was then sized and sized to a size 70. The AP cutting block was pinned parallel to the epicondylar axis which was 4 degrees of external rotation. Anterior cut, anterior chamfer, posterior cut, posterior chamfer cuts were made. The box cutting guide was placed in just slight lateral box cut was made. The knee was flexed. The remnants of the medial and lateral menisci were excised. The osteophytes were taken off the posterior aspect the femur. I did release the popliteus tendon in order to equalize the flexion gap. Great care was taken during the procedure protect the peroneal nerve at all times. A trial femoral component was placed. The tibial tray was pinned in maximum external rotation and the drill and stem punch were used to create defect in proximal tibia for the tibial tray. Knee was then trialed and the 10 mm insert fit most appropriately. Attention drawn the patella. Patella was cleaned of all soft tissues. Patella thickness measured 25 mm in thickness was cut down to 15. Was sized to a size 31 patella. The lug holes were drilled for the 31 patella. The lateral osteophyte was removed. Patella button was placed. Knee was taken through range of motion patella tracked nicely with no thumbs test. Attention drawn to placing permanent components. Nupathe all trial components were removed. Bone plug was placed in the distal femur limit blood loss. Double batch Palacos G cement was mixed. BiomEagle Pharmaceuticalsguard size 70 right posterior stabilized femoral component, a size 675 tibial tray, a 10 mm posterior stabilized polyethylene insert, and a 31 x 8 all Paller patella then cemented in place. Knee was brought out into full extension until cement hardened. Final cement check was then performed. The pericapsular tissues were injected with total 100 cc of combination of 20 cc of Exparel, 30 cc normal saline, 50 cc of quarter percent Marcaine with epinephrine. Patient did receive 1 g tranexamic acid. The tourniquet was then let down for turn time 54 minutes. Hemostasis reduced electrocautery. Extensor mechanism closed with combination 1 PDS suture #1 Vicryl suture in [id number] fashion. Extensor mechanism checked found to be intact and subcutaneous tissue then closed with 2 Dexon suture buried erupted fashion skin was closed skin yariel. Leg was then cleaned and dried and sterile dressed with Xeroform, 4 x 4's, sterile cast padding, Daquan bandage were applied. Patient then transferred to the recovery room in stable condition. The patient tolerated procedure well and there are no complications. Jayson Kinney, my physician catalog library assistant, was present for the entire procedure. His assistance was essential and required for appropriate patient positioning, prepping and draping, surgical exposure, performing the technical details of the operation, placement the implants, closure of the wound, and placement of the sterile bandage. I attest to the content of the Intraoperative Record and any orders documented therein. Any exceptions are noted below.
--- NOTE | 2022-01-25 11:31 | XRay Report ---
TWO VIEWS RIGHT KNEE CLINICAL HISTORY: Postoperative examination. FINDINGS: AP and crosstable lateral portable views of the right knee are obtained. A right knee arthr oplasty is in near anatomic alignment. There has been undersurface remodeling of the patella. No acut e fracture is seen. There are expected postoperative changes around the knee including skin clips, so ft tissue edema, and subcutaneous gas. IMPRESSION: Expected postoperative changes status post right knee arthroplasty. No acute fracture is seen. ACT 112: Negative or not required by law. Electronically signed by: Zac Silverio M.D. 01/25/2022 11:29 AM
--- NOTE | 2022-01-25 11:37 | Anesthesiology Progress Note ---
Date of Service January 25, 2022 Anesthesia Post Procedure Vital Signs Vital Signs: Temp Pulse Pulse Resp BP Pulse Ox O2 Del Method 01/25/22 11:15 81 12 124/63 100 Room Air 01/25/22 11:05 82 20 113/56 L 99 Oxymask 01/25/22 10:55 81 12 117/56 L 100 Oxymask 01/25/22 11:30 36.3 C L 83 12 110/58 L 97 Room Air 01/25/22 10:47 36.3 C L 89 17 113/61 100 Oxymask 01/25/22 06:16 36.6 C 85 18 134/70 99 Room Air O2 Flow Rate 01/25/22 11:15 01/25/22 11:05 2 01/25/22 10:55 4 01/25/22 11:30 01/25/22 10:47 6 01/25/22 06:16 Pain Intensity Right Knee: Pain Intensity: 5 Transfer of Care Handoff Completed per policy Notes Mental Status: alert / awake / arousable Patient Amnestic to Procedure: Yes Nausea / Vomiting: adequately controlled Pain: adequately controlled Airway Patency, RR, SpO2: stable & adequate BP & HR: stable & adequate Hydration State: stable & adequate Neuraxial Anesthesia: was administered and sensory block is resolving Anesthetic Complications: no major complications apparent and Pt Satisfied with anesthetic care
[2022-01-25] MEDS ORDERED: bisacodyL 10 MG SUPP PR PRN (12:04)
[2022-01-25] MEDS ORDERED: NALOXONE HCL 0.4 MG/1 ML VIAL/CARP IV PRN (12:04)
[2022-01-25] MEDS ORDERED: HYDROmorphone INJ 0.5 MG/0.5 ML SYR IV PRN (12:04)
[2022-01-25] MEDS ORDERED: ALUMINUM/MAGNESIUM SUSP 30 ML UDC PO PRN (12:04)
[2022-01-25] MEDS ORDERED: METOCLOPRAMIDE HCL INJ 5 MG/ML 2 ML VIAL IV PRN (12:04)
[2022-01-25] MEDS ORDERED: MAGNESIUM HYDROXIDE SUSP 30 ML UDC PO PRN (12:04)
[2022-01-25] MEDS ORDERED: PREGABALIN 75 MG CAP PO PRN (12:04)
[2022-01-25] MEDS ORDERED: DOXEPIN HCL 25 MG CAPSULE PO PRN (12:04)
[2022-01-25] MEDS ORDERED: oxyCODONE HCL IR 5 MG TAB (IMMEDIATE RELEASE) PO PRN (12:04)
[2022-01-25] MEDS: SODIUM CHLORIDE 0.9% 1000ML 1,000 ML IV SCH (14:00)
[2022-01-25] MEDS: ACETAMINOPHEN 500 MG TAB PO SCH ×2 (14:52→21:08)
[2022-01-25] MEDS: KETOROLAC TROMETHAMINE 15 MG/ML VIAL IV SCH ×3 (14:53→23:37)
[2022-01-25] MEDS ORDERED: TRANEXAMIC ACID / 0.7% NACL 1,000 MG/100 ML BAG IV SCH (16:45)
[2022-01-25] MEDS: ASCORBIC ACID 500 MG TAB PO SCH (18:20)
[2022-01-25] MEDS: ceFAZolin 2000MG 2,000 MG/15 ML SYR IV SCH ×2 (18:36→23:37)
[2022-01-25] MEDS ORDERED: SIMVASTATIN 40 MG TAB PO SCH (21:00)
[2022-01-25] MEDS ORDERED: DOCUSATE SODIUM/SENNA 50/8.6MG TAB PO SCH (21:00)
[2022-01-25] MEDS ORDERED: NON-FORMULARY MEDICATION (Diphenhydramine-Acetaminophen [Tylenol Pm Extra Strength] 25-500 PO SCH (21:00)
[2022-01-25] MEDS ORDERED: MELATONIN 3 MG TAB PO SCH (21:00)
[2022-01-25] MEDS ORDERED: SENNA 8.6 MG TAB PO SCH (21:00)
[2022-01-25] MEDS: GLUCOSAMINE SULFATE 500 MG CAP PO SCH (21:09)
[2022-01-25] MEDS: DOCUSATE SODIUM 100 MG CAP PO SCH (21:10)
[2022-01-26] MEDS: SODIUM CHLORIDE 0.9% 1000ML 1,000 ML IV SCH (00:03)
[2022-01-26] MEDS: KETOROLAC TROMETHAMINE 15 MG/ML VIAL IV SCH (05:56)
[2022-01-26] MEDS: ACETAMINOPHEN 500 MG TAB PO SCH (05:56)
--- NOTE | 2022-01-26 07:56 | Progress Notes ---
SUBJECTIVE: A 76-year-old gentleman postoperative day 1 from a right knee replacement. He is doing pretty well. He had a reasonable night. No chest pain or shortness of breath. Not feeling dizzy or lightheaded. OBJECTIVE: VITAL SIGNS: Temperature 36.4. Vital signs are stable. GENERAL: Physical examinations shows a pleasant, elderly male. He is sitting in a bedside chair, lo oks comfortable. He is awake, alert, and oriented and appropriate. EXTREMITIES: Examination of the right leg reveals the dressing to be clean, dry and intact. He can dorsiflex and plantarflex his foot appropriately. He can do a good straight leg raise. LABORATORY DATA: Labs are pending. ASSESSMENT: A 76-year-old gentleman postoperative day 1 from a right knee replacement. He is doing well. Pain is controlled. He is neurologically intact. PLAN: 1. DVT prophylaxis includes thigh-high TEDs, SCDs, and he is on Xarelto for 30 days starting 24 hour s postop at a prophylactic dose due to a history of a questionable thrombosis in the past. 2. PT/OT, weightbear as tolerated. Right total knee protocol. 3. Pain control, doing okay with current pain regimen. 4. Disposition: Plan to discharge to home with some home health and his 's assistance. Job ID: [id number]
[2022-01-26] MEDS ORDERED: dexAMETHasone 10 MG in SYRINGE 0 ML IV SCH (08:00)
[2022-01-26] MEDS: GLUCOSAMINE SULFATE 500 MG CAP PO SCH (08:08)
[2022-01-26] MEDS: ASCORBIC ACID 500 MG TAB PO SCH (08:08)
[2022-01-26] MEDS: DOCUSATE SODIUM 100 MG CAP PO SCH (08:08)
[2022-01-26] MEDS ORDERED: MULTIVITAMIN TAB PO SCH (09:00)
[2022-01-26] MEDS ORDERED: TAMSULOSIN HCL 0.4 MG CAP PO SCH (09:00)
[2022-01-26 09:05] LABS: Hematocrit (blood only) 37.3 % (40.1-51.0); Hemoglobin 12.9 g/dl (14.0-18.0); Mean Corpuscular Hemoglobin 32.5 pg (25.0-34.0); Mean Corpuscular Hgb Conc 34.6 g/dL (32.0-36.0); Mean Platelet Volume 9.2 fL (9.4-12.4); Platelet Count 150 K/uL (130-400); RDW Standard Deviation 44.8 fL (36.4-46.3); Red Blood Count 3.97 M/uL (4.63-6.08); White Blood Count 9.26 K/ul (4.8-10.8)
[2022-01-26 09:10] LABS: BUN Creatinine Ratio 21.6 (10-20); Calcium 8.6 mg/dl (8.5-10.1); Creatinine Clr Calc Pharmacy 79.9 ml/min; Est GFR (African American) 88.8 ml/min; Est GFR (Non-African American) 76.6 ml/min; Potassium 4.2 mmol/L (3.5-5.1)
[2022-01-26] MEDS ORDERED: RIVAROXABAN 2.5 MG TAB PO SCH (11:00)
--- NOTE | 2022-01-29 13:44 | Discharge Summary ---
Date of Service January 29, 2022 Discharge Data Procedures Performed Operation Date: 01/25/22 08:50 Actual Procedures p Right Total Knee Arthroplasty(Right) - Tico Robertson MD Hospital Course (1) Status post total right knee replacement: This is a 76 year old patient admitted on 01/25/22 and underwent total knee arthroplasty. He tolerated the procedure well and there were no complications. Transferred to the PACU post op and later to the orthopedic floor for further care. He was given ancef for antibiotic prophylaxis. He was also given KINGS stockings, SCDs, and xarelto for DVT prophylaxis. Hemoglobin, hematocrit, and vital signs were monitored during his hospital stay and remained stable. Did not require any blood transfusions. There were no complications during his hospital stay. By post op day #1 the patient was tolerating a regular diet, pain was reasonably controlled with oral pain medicine, and he was participating in physical therapy. On post op day #1 the patient was discharged home and set up with home health care. He was given printed discharge instructions including prescriptions for extra strength tylenol, zofran, senokot, xarelto, flomax, and oxycodone. Continue physical therapy, weight bearing as tolerated. Continue KINGS stockings. Follow up approximately 2 weeks post op or sooner if there are problems or concerns. Coding Level of Care Code None Diagnoses Status post total right knee replacement Z96.651
== END 2022-01-26 12:06 | disposition home health service (06) ==
LOC: 3E 05:48 → ASU 05:48